=== PATIENT | male | born 1990 | race Two or more races ===

== ENCOUNTER → 2019-05-11 | Outpatient (CLI) | payer OTHER ==
--- NOTE | 2019-05-11 13:30 | REP ---
For views: There is a nondisplaced slightly angulated fracture of the midshaft of the fifth digit metacarpal. There is no dislocation. Mineralization and joint spaces otherwise are unremarkable. Impression: Fifth digit metacarpal fracture. Electronically Signed by Dc Xiao MD 05/11/2019 01:22 P
== END ==
LOC: M LRY 13:00
PROVIDERS: ATTEND Physician Assistant
DX: S62.306A Unspecified fracture of fifth metacarpal bone, right hand, initial encounter for closed fracture (principal); X58.XXXA Exposure to other specified factors, initial encounter; Y92.89 Other specified places as the place of occurrence of the external cause
CPT/HCPCS: 73130; J1885